=== PATIENT | female | born 1955 | race Caucasian/White ===

== ENCOUNTER 2021-09-06 06:47 | Inpatient (IN) | payer MEDICAID ==
[2021-09-06] MEDS ORDERED: ONDANSETRON 4 MG/2 ML VIAL IVP STA (07:17)
[2021-09-06] MEDS ORDERED: SODIUM CHLORIDE 0.9% 1,000 ML IV STA (07:17)
[2021-09-06] MEDS ORDERED: HYDROmorphone 0.5 MG/0.5 ML SYRINGE IVP STA ×2 (07:17→08:32)
--- NOTE | 2021-09-06 07:17 | ED ---
Abdominal Pain HPI - General Chief Complaint: Abdominal Pain Stated Complaint: Abd Pain Time Seen by Provider: 09/06/21 07:01 Source: patient, RN notes reviewed Mode of arrival: wheelchair Limitations: no limitations - History of Present Illness Initial Comments: Patient is a 66-year-old female presented to the ED for abdominal pain. Patient states the pain is 10/10 and located in the upper right quadrant with inability to sit still that started this morning at 2:30. Patient's reports an episode similar to this one week prior that resolved on its own. Patient reports some nausea and vomiting associated with the pain. Patient denies any f ever or any sick contacts that they know of. Patient was able to eat and drink last night just fine with no changes in bowel movements. - Related Data Allergies Allergy/AdvReac Type Severity Reaction Status Date / Time Penicillins Allergy Anaphylaxis Verified 09/06/21 06:59 sulfamethoxazole Allergy Rash/Hives Verified 09/06/21 06:59 [From Bactrim] trimethoprim [From Bactrim] Allergy Rash/Hives Verified 09/06/21 06:59 Review of Systems ROS Statement: Those systems with pertinent positive or pertinent negative responses have been documented in the HPI. ROS Other: All systems not noted in ROS Statement are negative. Past Medical History Past Medical History: GERD/Reflux, Hyperlipidemia History of Any Multi-Drug Resistant Organisms: None Reported Past Surgical History: No Surgical Hx Reported Past Psychological History: No Psychological Hx Reported Smoking Status: Never smoker Past Alcohol Use History: None Reported Past Drug Use History: None Reported General Exam Limitations: no limitations General appearance: alert, anxious, in distress (Severe pain) Head exam: Present: atraumatic, normocephalic, normal inspection Eye exam: Present: normal appearance, PERRL, EOMI. Absent: scleral icterus, conjunctival injection, periorbital swelling Neck exam: Present: normal inspection, full ROM. Absent: tenderness, lymphadenopathy Respiratory exam: Present: normal lung sounds bilaterally. Absent: respiratory distress, wheezes, rales, rhonchi, stridor Cardiovascular Exam: Present: regular rate, normal rhythm, normal heart sounds. Absent: systolic murmur, diastolic murmur, rubs, gallop, clicks GI/Abdominal exam: Present: soft, tenderness (Right upper quadrant), guarding, normal bowel sounds. Absent: distended, rebound, rigid Back exam: Absent: CVA tenderness (R), CVA tenderness (L) Neurological exam: Present: alert, oriented X3 Skin exam: Present: warm, dry, intact, normal color. Absent: rash Course Vital Signs 09/06/21 06:56 Temperature 98.6 F Pulse Rate 68 Respiratory 18 Rate Blood Pressure 162/91 O2 Sat by Pulse 98 Oximetry - Reevaluation(s) Reevaluation #1: 09/06/21 08:10 Patient was reevaluated states that she's greatly improved at this time. Patient updated on pending labs and ultrasound Medical Decision Making - Medical Decision Making Patient's found to have significant leukocytosis, CT and ultrasound will reveal evidence of cholelithiasis. Patient will be started on antibiotics, admitted to Dr. Page with pain control, nothing by mouth diet - Lab Data Result diagrams: 09/06/21 07:28 09/06/21 07:28 Lab Results 09/06/21 09/06/21 09/06/21 Range/Units 07:28 07:28 07:28 WBC 20.1 H (3.8-10.6) k/uL RBC 4.73 (3.80-5.40) m/uL Hgb 14.2 (11.4-16.0) gm/dL Hct 41.3 (34.0-46.0) % MCV 87.4 (80.0-100.0) fL MCH 30.0 (25.0-35.0) pg MCHC 34.3 (31.0-37.0) g/dL RDW 14.5 (11.5-15.5) % Plt Count 369 (150-450) k/uL MPV 8.1 Neutrophils % 69 % Lymphocytes % 22 % Monocytes % 6 % Eosinophils % 1 % Basophils % 1 % Neutrophils # 13.9 H (1.3-7.7) k/uL Lymphocytes # 4.5 (1.0-4.8) k/uL Monocytes # 1.1 H (0-1.0) k/uL Eosinophils # 0.2 (0-0.7) k/uL Basophils # 0.1 (0-0.2) k/uL Sodium 140 (137-145) mmol/L Potassium 4.3 (3.5-5.1) mmol/L Chloride 106 (98-107) mmol/L Carbon Dioxide 22 (22-30) mmol/L Anion Gap 12 mmol/L BUN 24 H (7-17) mg/dL Creatinine 0.66 (0.52-1.04) mg/dL Est GFR (CKD-EPI)AfAm >90 (>60 ml/min/1.73 sqM) Est GFR (CKD-EPI)NonAf >90 (>60 ml/min/1.73 sqM) Glucose 138 H (74-99) mg/dL Plasma Lactic Acid Ilan (0.7-2.0) mmol/L Calcium 10.0 (8.4-10.2) mg/dL Total Bilirubin 0.6 (0.2-1.3) mg/dL AST 39 H (14-36) U/L ALT 32 (4-34) U/L Alkaline Phosphatase 101 (38-126) U/L Total Protein 7.3 (6.3-8.2) g/dL Albumin 4.6 (3.5-5.0) g/dL Amylase 74 (30-110) U/L Lipase 99 (23-300) U/L Urine Color Light Yellow Urine Appearance Cloudy H (Clear) Urine pH 6.0 (5.0-8.0) Ur Specific Dunn 1.017 (1.001-1.035) Urine Protein Trace H (Negative) Urine Glucose (UA) Negative (Negative) Urine Ketones Negative (Negative) Urine Blood Small H (Negative) Urine Nitrite Negative (Negative) Urine Bilirubin Negative (Negative) Urine Urobilinogen <2.0 (<2.0) mg/dL Ur Leukocyte Esterase Negative (Negative) Urine RBC 6 H (0-5) /hpf Urine WBC 2 (0-5) /hpf Ur Squamous Epith Cells 5 H (0-4) /hpf Urine Bacteria Rare H (None) /hpf Urine Mucus Rare H (None) /hpf 09/06/21 Range/Units 07:28 WBC (3.8-10.6) k/uL RBC (3.80-5.40) m/uL Hgb (11.4-16.0) gm/dL Hct (34.0-46.0) % MCV (80.0-100.0) fL MCH (25.0-35.0) pg MCHC (31.0-37.0) g/dL RDW (11.5-15.5) % Plt Count (150-450) k/uL MPV Neutrophils % % Lymphocytes % % Monocytes % % Eosinophils % % Basophils % % Neutrophils # (1.3-7.7) k/uL Lymphocytes # (1.0-4.8) k/uL Monocytes # (0-1.0) k/uL Eosinophils # (0-0.7) k/uL Basophils # (0-0.2) k/uL Sodium (137-145) mmol/L Potassium (3.5-5.1) mmol/L Chloride (98-107) mmol/L Carbon Dioxide (22-30) mmol/L Anion Gap mmol/L BUN (7-17) mg/dL Creatinine (0.52-1.04) mg/dL Est GFR (CKD-EPI)AfAm (>60 ml/min/1.73 sqM) Est GFR (CKD-EPI)NonAf (>60 ml/min/1.73 sqM) Glucose (74-99) mg/dL Plasma Lactic Acid Ilan 2.1 H* (0.7-2.0) mmol/L Calcium (8.4-10.2) mg/dL Total Bilirubin (0.2-1.3) mg/dL AST (14-36) U/L ALT (4-34) U/L Alkaline Phosphatase (38-126) U/L Total Protein (6.3-8.2) g/dL Albumin (3.5-5.0) g/dL Amylase (30-110) U/L Lipase (23-300) U/L Urine Color Urine Appearance (Clear) Urine pH (5.0-8.0) Ur Specific Dunn (1.001-1.035) Urine Protein (Negative) Urine Glucose (UA) (Negative) Urine Ketones (Negative) Urine Blood (Negative) Urine Nitrite (Negative) Urine Bilirubin (Negative) Urine Urobilinogen (<2.0) mg/dL Ur Leukocyte Esterase (Negative) Urine RBC (0-5) /hpf Urine WBC (0-5) /hpf Ur Squamous Epith Cells (0-4) /hpf Urine Bacteria (None) /hpf Urine Mucus (None) /hpf Disposition Clinical Impression: Cholecystitis with cholelithiasis Disposition: ADMITTED IP TO THIS [facility] Condition: Fair Referrals: Nate Cardenas DO [Primary Care Provider] - 1-2 days
[2021-09-06 07:53] LABS: Basophils # (A) 0.1 k/uL (0-0.2); Basophils % (A) 1 %; Eosinophils # (A) 0.2 k/uL (0-0.7); Eosinophils % (A) 1 %; HCT 41.3 % (34.0-46.0); HGB 14.2 gm/dL (11.4-16.0); Lymphocytes # (A) 4.5 k/uL (1.0-4.8); Lymphocytes % (A) 22 %; MCHC 34.3 g/dL (31.0-37.0); MCV 87.4 fL (80.0-100.0); Mean Platelet Volume 8.1; Monocytes # (A) 1.1 k/uL (0-1.0); Monocytes % (A) 6 %; Neutrophils # (A) 13.9 k/uL (1.3-7.7); Neutrophils % (A) 69 %; Platelet Count 369 k/uL (150-450); RBC 4.73 m/uL (3.80-5.40); RDW 14.5 % (11.5-15.5); WBC 20.1 k/uL (3.8-10.6)
[2021-09-06 08:04] LABS: Appearance,Urine Cloudy (Clear); Bacteria,Urine Rare /hpf; Bilirubin,Urine Negative (Negative); Blood,Urine Small (Negative); Color,Urine Light Yellow; Glucose,Urine (UA) Negative (Negative); Ketones,Urine Negative (Negative); Leukocyte Esterase,Urine Negative (Negative); Mucus,Urine Rare /hpf; Nitrite,Urine Negative (Negative); Protein,Urine Trace (Negative); RBC,Urine 6 /hpf (0-5); Specific Gravity,Urine 1.017 (1.001-1.035); Squamous Epithelial Cell,Urine 5 /hpf (0-4); Urobilinogen,Urine <2.0 mg/dL (<2.0); WBC,Urine 2 /hpf (0-5)
[2021-09-06 08:13] LABS: ALT 32 U/L (4-34); AST 39 U/L (14-36); African American GFR (CKD) >90 (>60 ml/min/1.73 sqM); Albumin 4.6 g/dL (3.5-5.0); Alkaline Phosphatase 101 U/L (38-126); Amylase 74 U/L (30-110); Anion Gap 12 mmol/L; Blood Urea Nitrogen 24 mg/dL (7-17); Carbon Dioxide 22 mmol/L (22-30); Chloride 106 mmol/L (98-107); Glucose 138 mg/dL (74-99); Lipase 99 U/L (23-300); Non-African American GFR(CKD) >90 (>60 ml/min/1.73 sqM); Sodium 140 mmol/L (137-145); Total Bilirubin 0.6 mg/dL (0.2-1.3); Total Protein 7.3 g/dL (6.3-8.2)
[2021-09-06 08:24] LABS: Potassium 4.3 mmol/L (3.5-5.1)
--- NOTE | 2021-09-06 08:26 | US ---
EXAMINATION TYPE: US gallbladder DATE OF EXAM: 09/06/2021 COMPARISON: NONE CLINICAL HISTORY: pain. EXAM MEASUREMENTS: Liver Length: 16.3 cm Gallbladder Wall: 0.2 cm CBD: 0.3 cm Right Kidney: 9.2x4.7x4.9 cm Pancreas: ? slightly echogenic in its visualized portions Liver: Increased attenuation Gallbladder: Gallstones seen Evidence for sonographic Dallas's sign: Patient medicated CBD: wnl Right Kidney: wnl IMPRESSION: Cholelithiasis. Correlate for possible hepatic steatosis, hepatocellular disease. Limited exam.
--- NOTE | 2021-09-06 09:26 | CT ---
EXAMINATION TYPE: CT abdomen pelvis w con DATE OF EXAM: 09/06/2021 COMPARISON: None INDICATION: Abdominal pain DLP: 1146 mGycm, Automated exposure control for dose reduction was used. CONTRAST: 100 ml mL of Isovue 300. Study performed without Oral Contrast TECHNIQUE: Axial images were obtained from above the diaphragm to the pubic rami in the axial plane a t 5 mm thick sections. Reconstructed images are reviewed on the computer in the coronal plane. FINDINGS: Limited CT sections are obtained the lung bases. The lung bases are clear. CT ABDOMEN: Liver: Normal Spleen: Normal Pancreas: Normal Adrenal glands: The adrenal glands are normal. Gallbladder: Cholesterol stones are present. Kidneys: No masses are evident. No hydronephrosis is present. No cysts are present. There is a 0.2 cm nonobstructing right renal stone. Aorta: Vascular calcification is within the aorta. Inferior vena cava: Normal. CT PELVIS: Loops of bowel within the abdomen and pelvis are normal. Diverticulosis is present. No inflammatory c hanges to suggest acute diverticulitis is evident. There are loops of bowel which are incompletely di stended or lack oral contrast limiting their evaluation. Appendix: Normal as visualized. Urinary bladder: Normal. Genitourinary structures: Osseous structures: No suspicious lytic or sclerotic lesions. IMPRESSIONS: 1. Diverticulosis. 2. Nonobstructing 0.2 cm right renal stone. 3. Cholelithiasis
[2021-09-06] MEDS ORDERED: metroNIDAZOLE-NS PMX 500 MG in SALINE 1 100ML.BAG IVPB STA (09:37)
[2021-09-06] MEDS ORDERED: PIPERACILLIN-TAZOBACTAM 3.375 GM in SODIUM CHLORIDE 0.9% 100 ML IVPB STA (09:37)
[2021-09-06] MEDS ORDERED: NALOXONE 0.4 MG/ML 1 ML VIAL IV PRN (09:39)
[2021-09-06] MEDS ORDERED: HYDROmorphone 0.5 MG/0.5 ML SYRINGE IVP PRN (09:39)
[2021-09-06] MEDS ORDERED: ONDANSETRON 4 MG/2 ML VIAL IVP PRN (09:39)
[2021-09-06] MEDS: SODIUM CHLORIDE 0.9% 1,000 ML IV SCH (10:00)
[2021-09-06] MEDS: HYDROmorphone 1 MG/ML 1 ML SYRINGE IVP PRN ×4 (10:01→20:04)
--- NOTE | 2021-09-06 14:32 | P.GSHP ---
History of Present Illness H&P Date: 09/06/21 CHIEF COMPLAINT: Abdominal pain HISTORY OF PRESENT ILLNESS: This is a 66-year-old female who presented to the hospital complaints of right upper quadrant abdominal pain. She reports having similar symptoms 3 weeks ago that subsided on its own as well as one week ago. She reports symptoms started at 2:30 this morning. She started to have right upper quadrant pain with nausea and vomiting. The pain did not radiate. She tried Pepto-Bismol without any improvement. She ate meatballs with gravy last night prior to symptoms starting. On the 2 other occasions she had eaten greasy fatty meals as well. Patient has been having chills. She denies any fever. Denies any change in bowel habits. Ultrasound the gallbladder did reveal gallstones. She did have a white count elevated at 20.1. PAST MEDICAL HISTORY: GERD, hyperlipidemia, asthma PAST SURGICAL HISTORY: Exploratory laparotomy for ovarian cysts MEDICATIONS: See list. ALLERGIES: See list. SOCIAL HISTORY: No illicit drug use. Nicotine dependence REVIEW OF SYSTEMS: CONSTITUTIONAL: Denies fever or chills. HEENT: Denies blurred vision, vision changes, or eye pain. Denies hemoptysis CARDIOVASCULAR: Denies chest pain or pressure. RESPIRATORY: No shortness of breath. GASTROINTESTINAL: See HPI for pertinent findings HEMATOLOGIC: Denies bleeding disorders. GENITOURINARY: Denies any blood in urine or increased urinary frequency. SKIN: Denies pruitis. Denies rash. PHYSICAL EXAM: VITAL SIGNS: Reviewed GENERAL: Well-developed in no acute distress. HEENT: No sclera icterus. Extraocular movements grossly intact. Moist buccal mucosa. Head is atraumatic, normocephalic. No nasal drainage. ABDOMEN: Soft. Nondistended. Right upper quadrant pain with palpation NEUROLOGIC: Alert and oriented. Cranial nerves II through XII grossly intact. LABORATORY DATA: WBC 20.1 hemoglobin 14.2 platelets 369 sodium 140 potassium 4.3 BUN 24 creatinine 0.66 Lactic acid 2.1 down to 1.4 AST 39 ALT 32 total bilirubin 0.6 Lipase 99 Urinalysis negative for infection COVID-19 not detected IMAGING: Ultrasound of gallbladder shows cholelithiasis. Correlate for possible hepatic steatosis, hepatocellular disease. Computed tomography scan abdomen and pelvis shows diverticulosis, nonobstructing 0.2 centimeter nonobstructing right renal stone. Cholelithiasis ASSESSMENT: 1. Acute cholecystitis 2. Right upper quadrant abdominal pain 3. Cholelithiasis PLAN: -Patient is scheduled for laparoscopic cholecystectomy tomorrow 09/07/[address] francisco -Patient can have clear liquids today -Nothing by mouth after midnight -Continue IV antibiotics -Continue pain medication as needed -Continue antiemetics GI prophylaxis Protonix and DVT prophylaxis subcu heparin Physician Glass Inspector note has been reviewed by physician. Signing provider agrees with the documented findings, assessment, and plan of care. Past Medical History Past Medical History: GERD/Reflux, Hyperlipidemia History of Any Multi-Drug Resistant Organisms: None Reported Past Surgical History: No Surgical Hx Reported Past Psychological History: No Psychological Hx Reported Smoking Status: Never smoker Past Alcohol Use History: None Reported Past Drug Use History: None Reported Medications and Allergies Home Medications Medication Instructions Recorded Confirmed Type Atorvastatin [Lipitor] 40 mg PO DAILY 09/06/21 09/06/21 History Multivitamins, Thera [Multivitamin 1 tab PO DAILY 09/06/21 09/06/21 History (formulary)] Omeprazole 40 mg PO DAILY PRN 09/06/21 09/06/21 History predniSONE See Taper PO DAILY 09/06/21 09/06/21 History Allergies Allergy/AdvReac Type Severity Reaction Status Date / Time Penicillins Allergy Anaphylaxis Verified 09/06/21 10:01 sulfamethoxazole Allergy Rash/Hives Verified 09/06/21 10:01 [From Bactrim] trimethoprim [From Bactrim] Allergy Rash/Hives Verified 09/06/21 10:01 Surgical - Exam Vital Signs Temp Pulse Resp BP Pulse Ox 98.6 F 68 18 162/91 98 09/06/21 06:56 09/06/21 06:56 09/06/21 06:56 09/06/21 06:56 09/06/21 06:56 Results - Labs 09/06/21 07:28 09/06/21 07:28 Abnormal Lab Results - Last 24 Hours (Table) 09/06/21 09/06/21 09/06/21 Range/Units 07:28 07:28 07:28 WBC 20.1 H (3.8-10.6) k/uL Neutrophils # 13.9 H (1.3-7.7) k/uL Monocytes # 1.1 H (0-1.0) k/uL BUN 24 H (7-17) mg/dL Glucose 138 H (74-99) mg/dL Plasma Lactic Acid Ilan (0.7-2.0) mmol/L AST 39 H (14-36) U/L Urine Appearance Cloudy H (Clear) Urine Protein Trace H (Negative) Urine Blood Small H (Negative) Urine RBC 6 H (0-5) /hpf Ur Squamous Epith Cells 5 H (0-4) /hpf Urine Bacteria Rare H (None) /hpf Urine Mucus Rare H (None) /hpf 09/06/21 Range/Units 07:28 WBC (3.8-10.6) k/uL Neutrophils # (1.3-7.7) k/uL Monocytes # (0-1.0) k/uL BUN (7-17) mg/dL Glucose (74-99) mg/dL Plasma Lactic Acid Ilan 2.1 H* (0.7-2.0) mmol/L AST (14-36) U/L Urine Appearance (Clear) Urine Protein (Negative) Urine Blood (Negative) Urine RBC (0-5) /hpf Ur Squamous Epith Cells (0-4) /hpf Urine Bacteria (None) /hpf Urine Mucus (None) /hpf Diabetes panel 09/06/21 Range/Units 07:28 Sodium 140 (137-145) mmol/L Potassium 4.3 (3.5-5.1) mmol/L Chloride 106 (98-107) mmol/L Carbon Dioxide 22 (22-30) mmol/L BUN 24 H (7-17) mg/dL Creatinine 0.66 (0.52-1.04) mg/dL Glucose 138 H (74-99) mg/dL Calcium 10.0 (8.4-10.2) mg/dL AST 39 H (14-36) U/L ALT 32 (4-34) U/L Alkaline Phosphatase 101 (38-126) U/L Total Protein 7.3 (6.3-8.2) g/dL Albumin 4.6 (3.5-5.0) g/dL Calcium panel 09/06/21 Range/Units 07:28 Calcium 10.0 (8.4-10.2) mg/dL Albumin 4.6 (3.5-5.0) g/dL Pituitary panel 09/06/21 Range/Units 07:28 Sodium 140 (137-145) mmol/L Potassium 4.3 (3.5-5.1) mmol/L Chloride 106 (98-107) mmol/L Carbon Dioxide 22 (22-30) mmol/L BUN 24 H (7-17) mg/dL Creatinine 0.66 (0.52-1.04) mg/dL Glucose 138 H (74-99) mg/dL Calcium 10.0 (8.4-10.2) mg/dL Adrenal panel 09/06/21 Range/Units 07:28 Sodium 140 (137-145) mmol/L Potassium 4.3 (3.5-5.1) mmol/L Chloride 106 (98-107) mmol/L Carbon Dioxide 22 (22-30) mmol/L BUN 24 H (7-17) mg/dL Creatinine 0.66 (0.52-1.04) mg/dL Glucose 138 H (74-99) mg/dL Calcium 10.0 (8.4-10.2) mg/dL Total Bilirubin 0.6 (0.2-1.3) mg/dL AST 39 H (14-36) U/L ALT 32 (4-34) U/L Alkaline Phosphatase 101 (38-126) U/L Total Protein 7.3 (6.3-8.2) g/dL Albumin 4.6 (3.5-5.0) g/dL
[2021-09-06] MEDS: PANTOPRAZOLE 40 MG TABLET PO SCH (15:42)
[2021-09-06] MEDS: LEVOFLOXACIN 500MG-D5W PMX 500 MG in DEXTROSE/WATER 1 100ML.BAG IVPB SCH (15:43)
[2021-09-06] MEDS: HEPARIN SODIUM,PORCINE/PF 5,000 UNIT/0.5 ML SYRINGE SQ SCH (20:04)
[2021-09-06] MEDS: metroNIDAZOLE-NS PMX 500 MG in SALINE 1 100ML.BAG IVPB SCH (21:39)
[2021-09-07] MEDS: HYDROmorphone 1 MG/ML 1 ML SYRINGE IVP PRN ×4 (02:08→22:55)
[2021-09-07] MEDS: metroNIDAZOLE-NS PMX 500 MG in SALINE 1 100ML.BAG IVPB SCH ×3 (02:08→19:55)
[2021-09-07] MEDS: SODIUM CHLORIDE 0.9% 1,000 ML IV SCH ×2 (02:09→12:59)
[2021-09-07 07:26] LABS: Basophils # (A) 0.1 k/uL (0-0.2); Basophils % (A) 0 %; Eosinophils # (A) 0.2 k/uL (0-0.7); Eosinophils % (A) 1 %; HCT 38.4 % (34.0-46.0); HGB 12.3 gm/dL (11.4-16.0); Lymphocytes # (A) 3.1 k/uL (1.0-4.8); Lymphocytes % (A) 17 %; MCH 29.1 pg (25.0-35.0); MCHC 32.1 g/dL (31.0-37.0); MCV 90.5 fL (80.0-100.0); Mean Platelet Volume 7.9; Monocytes # (A) 1.3 k/uL (0-1.0); Monocytes % (A) 7 %; Neutrophils # (A) 13.7 k/uL (1.3-7.7); Neutrophils % (A) 74 %; Platelet Count 255 k/uL (150-450); RBC 4.25 m/uL (3.80-5.40); RDW 14.2 % (11.5-15.5); WBC 18.6 k/uL (3.8-10.6)
[2021-09-07] MEDS: HEPARIN SODIUM,PORCINE/PF 5,000 UNIT/0.5 ML SYRINGE SQ SCH ×2 (07:34→19:56)
[2021-09-07] MEDS: PANTOPRAZOLE 40 MG TABLET PO SCH (07:34)
[2021-09-07 07:35] LABS: African American GFR (CKD) >90 (>60 ml/min/1.73 sqM); Anion Gap 6 mmol/L; Blood Urea Nitrogen 10 mg/dL (7-17); Calcium 8.4 mg/dL (8.4-10.2); Carbon Dioxide 27 mmol/L (22-30); Chloride 101 mmol/L (98-107); Glucose 106 mg/dL (74-99); Non-African American GFR(CKD) >90 (>60 ml/min/1.73 sqM); Potassium 3.6 mmol/L (3.5-5.1); Sodium 134 mmol/L (137-145)
[2021-09-07] MEDS ORDERED: LACTATED RINGERS 1,000 ML IV ONE ×3 (10:06→12:11)
[2021-09-07] MEDS ORDERED: MIDAZOLAM 2 MG/2 ML VIAL IVP ONE (10:15)
[2021-09-07] MEDS ORDERED: DEXAMETHASONE SOD PHOSPHATE 4 MG/ML 1 ML VIAL IVP ONE (10:31)
[2021-09-07] MEDS ORDERED: ONDANSETRON 4 MG/2 ML VIAL IVP ONE (10:32)
[2021-09-07] MEDS ORDERED: HEPARIN SODIUM,PORCINE 5,000 UNIT/ML 1 ML VIAL SQ ONE (10:36)
[2021-09-07] MEDS ORDERED: ROCURONIUM 10 MG/ML (5 ML VIAL) IV ONE (10:55)
[2021-09-07] MEDS ORDERED: GLYCOPYRROLATE 0.2 MG/ML 2 ML VIAL ONE (10:55)
[2021-09-07] MEDS ORDERED: KETOROLAC 15 MG/ML 1 ML VIAL ONE (10:55)
[2021-09-07] MEDS ORDERED: fentaNYL (PF) 50 MCG/ML 2 ML AMP ONE (10:55)
[2021-09-07] MEDS ORDERED: NEOSTIGMINE 1 MG/ML 10 ML VIAL ONE (10:55)
[2021-09-07] MEDS ORDERED: SUCCINYLCHOLINE CHLORIDE 100 MG/5 ML SYR IV ONE (10:55)
[2021-09-07] MEDS ORDERED: PROPOFOL 10 MG/ML 20 ML VIAL IV ONE (10:55)
[2021-09-07] MEDS ORDERED: LIDOCAINE 1% INJ 10MG/ML (20 ML MDV) ONE (10:55)
[2021-09-07] MEDS ORDERED: KETAMINE 10 MG/ML 20 ML VIAL ONE (10:55)
[2021-09-07] MEDS ORDERED: BUPIVACAINE (PF) 0.5% 30 ML VIAL SQ ONE (11:30)
--- NOTE | 2021-09-07 11:38 | P.OP ---
Date of Procedure: 09/07/21 Preoperative Diagnosis: Cholecystitis Postoperative Diagnosis: Cholecystitis Procedure(s) Performed: Laparoscopic cholecystectomy Anesthesia: CARIDAD Surgeon: Nicholas Page Estimated Blood Loss (ml): 5 Pathology: other (Gallbladder) Condition: stable Disposition: PACU Description of Procedure: The patient was placed on the operating table. The patient received a general endotracheal tube anesthesia. The patients abdomen was prepped and draped in the usual sterile fashion. Through an infraumbilical stab incision, the fascia of the anterior abdominal wall was grasped with a pair of Kochers and then the Veress needle was placed in the peritoneal cavity. Position of the Veress needle was confirmed with positive drop test. The abdomen was then insufflated. After adequate insufflation, the 10 mm trocar was placed in the peritoneal cavity. Following this the laparoscope was placed in the peritoneal cavity. The patient was placed in the head-up, right side up position and then a 5 mm trocar was placed in the right lateral and right subcostal position under direct visualization. A 8 mm trocar was placed in the epigastric position. The gallbladder was grasped in the fundus and infundibulum. Traction on the gallbladder was placed in the lateral and the cephalad positions. The triangle of Calot was visualized.. The cystic duct was bluntly dissected until the union of the cystic duct and common bile duct was seen. A critical view of safety was achieved. The cystic duct was then divided and sealed with the Harmonic scissors. A PDS Endoloop was then placed throughout the cystic duct stump. The cystic artery divided and sealed with the Harmonic scissors. The gallbladder was then removed from the liver bed using Harmonic scissors. The gallbladder was then extracted through the epigastric port site. Operative field was checked for any bleeding spots and Harmonic scissors was used to coagulate the liver bed. The abdomen was irrigated. The trocars were removed. The skin was closed using interrupted 3-0 Vicryl suture. Dermabond dressing were applied. The patient tolerated the procedure well.
[2021-09-07] MEDS: LEVOFLOXACIN 500MG-D5W PMX 500 MG in DEXTROSE/WATER 1 100ML.BAG IVPB SCH (15:09)
[2021-09-07] MEDS: CALCIUM CARBONATE 500 MG CHEWABLE PO PRN (22:52)
[2021-09-08] MEDS: metroNIDAZOLE-NS PMX 500 MG in SALINE 1 100ML.BAG IVPB SCH ×2 (02:25→11:54)
[2021-09-08] MEDS: SODIUM CHLORIDE 0.9% 1,000 ML IV SCH (02:25)
[2021-09-08] MEDS: CALCIUM CARBONATE 500 MG CHEWABLE PO PRN ×2 (06:01→09:40)
[2021-09-08 07:38] VITALS: BP 155/85; PULSE 74; RESP 18; TEMP 97.5
[2021-09-08] MEDS: PANTOPRAZOLE 40 MG TABLET PO SCH (08:05)
[2021-09-08] MEDS: HEPARIN SODIUM,PORCINE/PF 5,000 UNIT/0.5 ML SYRINGE SQ SCH (08:05)
[2021-09-08 09:03] LABS: Basophils % (A) 0 %; Eosinophils # (A) 0.1 k/uL (0-0.7); Eosinophils % (A) 1 %; HCT 36.8 % (34.0-46.0); HGB 12.4 gm/dL (11.4-16.0); Lymphocytes # (A) 3.3 k/uL (1.0-4.8); Lymphocytes % (A) 20 %; MCH 30.1 pg (25.0-35.0); MCHC 33.8 g/dL (31.0-37.0); Mean Platelet Volume 8.9; Monocytes # (A) 0.9 k/uL (0-1.0); Monocytes % (A) 5 %; Neutrophils # (A) 12.2 k/uL (1.3-7.7); Neutrophils % (A) 73 %; Platelet Count 273 k/uL (150-450); RBC 4.13 m/uL (3.80-5.40); RDW 14.4 % (11.5-15.5); WBC 16.8 k/uL (3.8-10.6)
[2021-09-08] MEDS ORDERED: HYDROcodone/APAP 5-325MG 1 EACH TAB PO PRN (11:38)
--- NOTE | 2021-09-08 11:52 | P.DS ---
Providers Date of admission: 09/08/21 08:09 Expected date of discharge: 09/08/21 Attending physician: Nicholas Page Primary care physician: Nate Cardenas Hospital Course: Discharge diagnosis 1. Acute cholecystitis status post laparoscopic cholecystectomy Hospital course This is a 66-year-old female who presented to the hospital complaints of right upper quadrant abdominal pain. She reports having similar symptoms 3 weeks ago that subsided on its own as well as one week ago. She reports symptoms started at 2:30 this morning. She started to have right upper quadrant pain with nausea and vomiting. The pain did not radiate. She tried Pepto-Bismol without any improvement. She ate meatballs with gravy last night prior to symptoms starting. On the 2 other occasions she had eaten greasy fatty meals as well. Ultrasound the gallbladder did reveal gallstones. Patient is status post laparoscopic cholecystectomy. Patient reports that her pain is controlled. She is tolerating diet. She is up and ambulating. She is having flatus. She is afebrile. Her white count is trending downwards. She is stable for discharge. Please refer to chart for any further details. Physician Frame Gate Mortiser Operator note has been reviewed by physician. Signing provider agrees with the documented findings, assessment, and plan of care. Patient Condition at Discharge: Stable Plan - Discharge Summary New Discharge Prescriptions: New Ibuprofen [Motrin] 600 mg PO Q8HR PRN #30 tab PRN Reason: Pain HYDROcodone/APAP 5-325MG [Sheridan 5-325] 1 tab PO Q6HR PRN 3 Days #12 tab PRN Reason: Pain Docusate [Colace] 100 mg PO BID #30 cap Levofloxacin [Levaquin] 500 mg PO DAILY 7 Days #7 tab Continue Multivitamins, Thera [Multivitamin (formulary)] 1 tab PO DAILY predniSONE See Taper PO DAILY Omeprazole 40 mg PO DAILY PRN PRN Reason: Heartburn Atorvastatin [Lipitor] 40 mg PO DAILY Discharge Medication List Atorvastatin [Lipitor] 40 mg PO DAILY 09/06/21 [History] Multivitamins, Thera [Multivitamin (formulary)] 1 tab PO DAILY 09/06/21 [History] Omeprazole 40 mg PO DAILY PRN 09/06/21 [History] predniSONE See Taper PO DAILY 09/06/21 [History] Docusate [Colace] 100 mg PO BID #30 cap 09/08/21 [Rx] HYDROcodone/APAP 5-325MG [Sheridan 5-325] 1 tab PO Q6HR PRN 3 Days #12 tab 09/08/21 [Rx] Ibuprofen [Motrin] 600 mg PO Q8HR PRN #30 tab 09/08/21 [Rx] Levofloxacin [Levaquin] 500 mg PO DAILY 7 Days #7 tab 09/08/21 [Rx] Follow up Appointment(s)/Referral(s): Nate Cardenas DO [Primary Care Provider] - 1-2 days Nicholas Page MD [STAFF PHYSICIAN] - 1 Week Activity/Diet/Wound Care/Special Instructions: No driving while taking Sheridan No lifting over 10 pounds You may shower. No soaking or tub baths for 2 weeks Very light activity until you are reevaluated at your follow up appointment with your surgeon Discharge Disposition: HOME SELF-CARE
[2021-09-08] MEDS ORDERED: LEVOFLOXACIN 500 MG TAB PO SCH (13:00)
[2021-09-08] MEDS ORDERED: metroNIDAZOLE 500 MG TAB PO SCH (17:00)
== END 2021-09-08 14:46 | disposition home or self-care (01) | DRG 419 ==
LOC: EC 06:47 → 1SOBS 09:46 → 6NMEDSUR 15:34 → 1SOBS 16:37 → OBSVTOIN 09-08 08:09
PROVIDERS: ADMIT Surgery; ATTEND Surgery
PROC: 0FT44ZZ Resection of Gallbladder, Percutaneous Endoscopic Approach (ICD-10-PCS; principal; 2021-09-08)
DX: K80.12 Calculus of gallbladder with acute and chronic cholecystitis without obstruction (principal); E78.5 Hyperlipidemia, unspecified; K57.30 Diverticulosis of large intestine without perforation or abscess without bleeding; K21.9 Gastro-esophageal reflux disease without esophagitis; F17.210 Nicotine dependence, cigarettes, uncomplicated; N20.0 Calculus of kidney; J45.909 Unspecified asthma, uncomplicated; Z20.822 Contact with and (suspected) exposure to COVID-19; Z79.899 Other long term (current) drug therapy; Z88.0 Allergy status to penicillin; Z88.2 Allergy status to sulfonamides
CPT/HCPCS: 36415; 74177; 76705; 80048; 80053; 81001; 82150; 83605; 83690; 85025; 87040; 87635; 88304; 96361; 96365; 96366; 96367; 96375; 96376; 99285

== ENCOUNTER 2023-12-14 10:03 | Emergency (ER) | payer MEDICAID ==
[2023-12-14 10:31] VITALS: PULSE 74; RESP 18; TEMP 98
--- NOTE | 2023-12-14 11:11 | US ---
EXAMINATION TYPE: US venous doppler duplex LE RT DATE OF EXAM: 12/14/2023 11:05 AM COMPARISON: NONE CLINICAL INDICATION: Female, 68 years old with history of pain; Right leg pain. No redness or swelli ng. Not on blood thinners. Hx recent shoulder surgery. SIDE PERFORMED: Right TECHNIQUE: The lower extremity deep venous system is examined utilizing real time linear array sonog krista with graded compression, doppler sonography and color-flow sonography. VESSELS IMAGED: Common Femoral Vein Deep Femoral Vein Greater Saphenous Vein * Femoral Vein Popliteal Vein Small Saphenous Vein * Proximal Calf Veins (* superficial vessels) Right Leg: Negative for DVT IMPRESSION: Grayscale, color doppler, spectral doppler imaging performed of the deep veins of the lo wer extremities. There is normal flow, compressibility, vascular waveforms.
--- NOTE | 2023-12-14 11:30 | ED ---
Extremity Problem HPI - General Chief complaint: Extremity Problem,Nontraumatic Stated complaint: Post-op right leg pain Time Seen by Provider: 12/14/23 10:28 Source: patient, RN notes reviewed Mode of arrival: ambulatory Limitations: no limitations - History of Present Illness Initial comments: 68-year-old female presents emergency Department with chief complaint of abdominal pain leg pain. Patient is concerned about DVT. She has not been very active secondary to a cyst removal on her back. Patient has no history DVT denies chest pain or shortness breath. - Related Data Home Medications Medication Instructions Recorded Confirmed Atorvastatin [Lipitor] 40 mg PO DAILY 09/06/21 09/06/21 Multivitamins, Thera [Multivitamin 1 tab PO DAILY 09/06/21 09/06/21 (formulary)] Omeprazole 40 mg PO DAILY PRN 09/06/21 09/06/21 predniSONE See Taper PO DAILY 09/06/21 09/06/21 Previous Rx's Medication Instructions Recorded Docusate [Colace] 100 mg PO BID #30 cap 09/08/21 HYDROcodone/APAP 5-325MG [[place] 1 tab PO Q6HR PRN 3 Days #12 tab 09/08/21 5-325] Ibuprofen [Motrin] 600 mg PO Q8HR PRN #30 tab 09/08/21 Levofloxacin [Levaquin] 500 mg PO DAILY 7 Days #7 tab 09/08/21 Allergies Allergy/AdvReac Type Severity Reaction Status Date / Time Penicillins Allergy Anaphylaxis Verified 12/14/23 10:24 sulfamethoxazole Allergy Rash/Hives Verified 12/14/23 10:24 [From Bactrim] trimethoprim [From Bactrim] Allergy Rash/Hives Verified 12/14/23 10:24 Review of Systems ROS Statement: Those systems with pertinent positive or pertinent negative responses have been documented in the HPI. ROS Other: All systems not noted in ROS Statement are negative. Past Medical History Past Medical History: GERD/Reflux, Hyperlipidemia Additional Past Medical History / Comment(s): covid oct 2020 History of Any Multi-Drug Resistant Organisms: None Reported Past Surgical History: No Surgical Hx Reported Past Psychological History: No Psychological Hx Reported Smoking Status: Current every day smoker Past Alcohol Use History: None Reported Past Drug Use History: None Reported General Exam Limitations: no limitations General appearance: alert, in no apparent distress Head exam: Present: atraumatic, normocephalic, normal inspection Respiratory exam: Present: normal lung sounds bilaterally. Absent: respiratory distress, wheezes, rales, rhonchi, stridor Cardiovascular Exam: Present: regular rate, normal rhythm, normal heart sounds. Absent: systolic murmur, diastolic murmur, rubs, gallop, clicks Extremities exam: Present: other (Tenderness right posterior leg neurovascular intact) Course Vital Signs 12/14/23 12/14/23 10:21 11:49 Temperature 98 F 98 F Pulse Rate 74 74 Respiratory 18 18 Rate Blood Pressure 156/74 140/81 O2 Sat by Pulse 96 97 Oximetry Medical Decision Making - Medical Decision Making Was pt. sent in by a medical professional or institution ([facility]ANDA Purvis, [employer], urgent care, hospital, or longterm...) When possible be specific @ -No Did you speak to anyone other than the patient for history (EMS, parent, family, police, friend...)? What history was obtained from this source @ -No Did you review nursing and triage notes (agree or disagree)? Why? @ -I reviewed and agree with nursing and triage notes Were old charts reviewed (outside hosp., previous admission, EMS record, old EKG, old radiological studies, urgent care reports/EKG's, longterm records)? Report findings @ -No old charts were reviewed Differential Diagnosis (chest pain, altered mental status, abdominal pain women, abdominal pain men, vaginal bleeding, weakness, fever, dyspnea, syncope, headache, dizziness, GI bleed, back pain, seizure, CVA, palpatations, mental health, musculoskeletal)? @ -Leg pain, DVT, leg strain EKG interpreted by me (3pts min.). @ -[None X-rays interpreted by me (1pt min.). @ -None done CT interpreted by me (1pt min.). @ -None done U/S interpreted by me (1pt. min.). @ -Ultrasound venous Doppler lower extremity no acute DVT What testing was considered but not performed or refused? (CT, X-rays, U/S, labs)? Why? @ -None What meds were considered but not given or refused? Why? @ -None Did you discuss the management of the patient with other professionals (professionals i.e. [facility]ANDA Purvis, [employer], lab, RT, psych nurse, licensed clinical social worker, classification counselor, teacher, special weapons and tactics officer, test case developer)? Give summary @ -No Was smoking cessation discussed for >3mins.? @ -No Was critical care preformed (if so, how long)? @ -No Were there social determinants of health that impacted care today? How? (Homelessness, low income, unemployed, alcoholism, drug addiction, transportation, low edu. Level, literacy, decrease access to med. care, prison, rehab)? @ -No Was there de-escalation of care discussed even if they declined (Discuss DNR or withdrawal of care, Hospice)? DNR status @ -No What co-morbidities impacted this encounter? (DM, HTN, Smoking, COPD, CAD, Cancer, CVA, ARF, Chemo, Hep., AIDS, mental health diagnosis, sleep apnea, morbid obesity)? @ -None Was patient admitted / discharged? Hospital course, mention meds given and route, prescriptions, significant lab abnormalities, going to OR and other pertinent info. @ -[Discharge patient ultrasound was negative for acute DVT. Patient discharged in stable condition return parameters were discussed. Undiagnosed new problem with uncertain prognosis? @ -No Drug Therapy requiring intensive monitoring for toxicity (Heparin, Nitro, Insulin, Cardizem)? @ -No Were any procedures done? @ -No Diagnosis/symptom? @ -Right leg pain Acute, or Chronic, or Acute on Chronic? @ -[Acute Uncomplicated (without systemic symptoms) or Complicated (systemic symptoms)? @ -Uncomplicated Side effects of treatment? @ -No Exacerbation, Progression, or Severe Exacerbation? @ -No Poses a threat to life or bodily function? How? (Chest pain, [place], DC, pneumonia, PE, COPD, DKA, ARF, appy, cholecystitis, CVA, Diverticulitis, Homicidal, Suicidal, threat to staff... and all critical care pts) @ -No Disposition Clinical Impression: Right leg pain Disposition: HOME SELF-CARE Condition: Stable Instructions (If sedation given, give patient instructions): Leg Pain (ED) Additional Instructions: Please return to the Emergency Department if symptoms worsen or any other concerns. Is patient prescribed a controlled substance at d/c from ED?: No Referrals: Nate Cardenas DO [Primary Care Provider] - 1-2 days Time of Disposition: 11:29
[2023-12-14 12:13] VITALS: BP 140/81
== END 2023-12-14 11:50 | disposition home or self-care (01) ==
LOC: EC 10:03
DX: M79.604 Pain in right leg (principal); E78.5 Hyperlipidemia, unspecified; K21.9 Gastro-esophageal reflux disease without esophagitis; F17.200 Nicotine dependence, unspecified, uncomplicated; Z88.0 Allergy status to penicillin; Z88.1 Allergy status to other antibiotic agents; Z88.2 Allergy status to sulfonamides; Z79.899 Other long term (current) drug therapy; Z86.16 Personal history of COVID-19
CPT/HCPCS: 99283